=== PATIENT | female | born 1960 | race Two or more races ===

== ENCOUNTER 2018-12-19 10:17 | Outpatient (CLI) | payer OTHER | END 2018-12-19 10:24 | disposition home or self-care (01) | LOC: RX STUDY 10:17 | DX: K56.609 Unspecified intestinal obstruction, unspecified as to partial versus complete obstruction (principal) ==

== ENCOUNTER 2019-04-10 13:51 | Outpatient (CLI) | payer OTHER | END 2019-04-10 13:52 | disposition home or self-care (01) | LOC: SONOGRAMA 13:51 | DX: E04.2 Nontoxic multinodular goiter (principal) ==

== ENCOUNTER → 2019-08-06 | Outpatient (CLI) | payer OTHER | END | disposition home or self-care (01) | LOC: RX STUDY 09:15 | DX: R13.13 Dysphagia, pharyngeal phase (principal) ==